=== PATIENT | male | born 2000 | race Caucasian/White ===

== ENCOUNTER 2021-09-25 09:03 | Emergency (ER) | payer MEDICAID ==
[~2021-09-25] VITALS: Ht 188 cm; Wt 68.6 kg
[2021-09-25 09:10] VITALS: BP 132/61
== END 2021-09-25 10:48 | disposition home or self-care (01) ==
LOC: ER 09:03
DX: S66.912A Strain of unspecified muscle, fascia and tendon at wrist and hand level, left hand, initial encounter (principal); F17.200 Nicotine dependence, unspecified, uncomplicated; F12.90 Cannabis use, unspecified, uncomplicated; W19.XXXA Unspecified fall, initial encounter; Y93.89 Activity, other specified; Y92.89 Other specified places as the place of occurrence of the external cause; Y99.8 Other external cause status
CPT/HCPCS: 29125; 73090; 99283